=== PATIENT | male | born 1975 | race Caucasian/White ===

== ENCOUNTER 2023-05-10 12:49 | Emergency (ER) | payer BC, SELFPAY ==
[2023-05-10] VITALS (11 sets, daily range): BP systolic 91–155; BP diastolic 54–92; PULSE 98–108; RESP 13–27; TEMP 36.8–38.1; O2SAT 90–99; BMI 33.9
--- NOTE | 2023-05-10 13:08 | ECG_ITS ---
[facility] Test Date: 2023-05-10 Pat Name: NABIL BLANCO Department: Room: - Gender: Male Contracting Officer: : 1975 Requested By: PING KEYS Order Number: [id number] Reading MD: ELIF TORRES Measurements Intervals [place] Rate: 102 P: 65 [place]: 166 QRS: 63 QRSD: 88 T: 48 QT: 320 QTc: 379 Interpretive Statements 1120 Sinus tachycardia 9140 abnormal rhythm ECG No previous ECG available for comparison Electronically Signed On 05-11-2023 7:21:05 EST by ELIF TORRES
--- NOTE | 2023-05-10 13:08 | ED.SOB1 ---
HPI - SOB/Dyspnea General Chief Complaint: Shortness of Breath/Dyspnea Stated Complaint: SHORTNESS OF BREATH Time Seen by Provider: 05/10/23 13:05 Source: patient Mode of arrival: walk-in Limitations: no limitations History of Present Illness HPI Narrative: 48-year-old male presents for shortness of breath. He states he is having an asthma flareup. His inhaler ran out and he did not have any albuterol at home. He has been this way for the past day. No productive cough or known fever. Related Data Previous Rx's Medication Instructions Recorded albuterol sulfate 2.5 mg/3 mL 2.5 mg (3 mL) inhalation Q6H PRN 05/10/23 (0.083 %) solution for nebulization shortness of breath or wheezing #90 mL albuterol sulfate 90 mcg/actuation 2 inh inhalation Q4H PRN shortness 05/10/23 aerosol inhaler of breath or wheezing #8.5 grams Allergies Allergy/AdvReac Type Severity Reaction Status Date / Time No Known Drug Allergies Allergy Verified 05/10/23 13:03 Review of Systems ROS Narrative A ten point review of systems is negative except as noted above. PFSH PFSH Social History Smoking status: Never smoker Exam Narrative Exam Narrative: Nurses note and vital signs reviewed and patient is not hypoxic. General: The patient appears well and in no apparent distress. Patient is resting comfortably on cart. Skin: Warm, dry, no pallor noted. There is no rash noted. Head: Normocephalic, atraumatic Eye: Normal conjunctiva, no drainage Ears, Nose, Mouth, and Throat: oral mucosa is moist. Nares patent. Respiratory: Patient is in no distress, a few rhonchi present Back: non-tender GI: Soft and nontender Musculoskeletal: The patient has no evidence of calf tenderness, no pitting edema, symmetrical pulses noted bilaterally Neurological: A&O, normal speech Psychiatric: Cooperative Constitutional Vital Signs, click to edit/add: Last Vital Signs Temp 98.3 F 05/10/23 15:03 Pulse 105 H 05/10/23 14:40 Resp 18 05/10/23 14:40 BP 107/60 05/10/23 15:00 Pulse Ox 93 L 05/10/23 14:40 O2 Del Method Room Air 05/10/23 13:04 Course Vital Signs Vital signs: Vital Signs Temperature 100.6 F H 05/10/23 13:04 Pulse Rate 107 H 05/10/23 13:04 Respiratory Rate 20 05/10/23 13:04 Blood Pressure 155/92 H 05/10/23 13:04 Pulse Oximetry 95 05/10/23 13:04 Oxygen Delivery Method Room Air 05/10/23 13:04 Temperature 98.3 F 05/10/23 15:03 Pulse Rate 105 H 05/10/23 14:40 Respiratory Rate 18 05/10/23 14:40 Blood Pressure 107/60 05/10/23 15:00 Pulse Oximetry 93 L 05/10/23 14:40 Oxygen Delivery Method Room Air 05/10/23 13:04 MDM - SOB/Dyspnea MDM Narrative Medical decision making narrative: The patient is positive for influenza. His temperature has come down with Tylenol and he feels much better after aerosol treatment. He is able to be discharged home with prescriptions for albuterol inhaler and albuterol solution for his nebulizer. Treatment diagnosis and follow-up were discussed with the patient Differential Diagnosis Differential diagnosis: Likely congestive heart failure, community acquired pneumonia, asthma with exacerbation and other (COVID, influenza) Lab Data Attestation: I reviewed the patient's lab results. Labs: Lab Results 05/10/23 Range/Units 13:24 Influenza Type A Ag Positive A Influenza Type B Ag Negative SARS-CoV-2 Ag (CV2AG) Negative (NEGATIVE) Imaging Data Chest x-ray: Radiologist's impression: ITS Impressions Chest X-Ray 05/10/23 13:16 IMPRESSION: Chest radiograph is within normal limits. Electronically authenticated by: AVE LOERA Date: 05/10/2023 14:26 Discharge Plan Discharge Chief Complaint: Shortness of Breath/Dyspnea Clinical Impression: Influenza Patient Disposition: Home, Self-Care Time of Disposition Decision: 15:34 Condition: Good Mode of Transportation: Private Vehicle Prescriptions / Home Meds: New albuterol sulfate 90 mcg/actuation HFA aerosol inhaler 2 inh inhalation Q4H PRN (Reason: shortness of breath or wheezing) Qty: 8.5 0RF albuterol sulfate 2.5 mg /3 mL (0.083 %) solution for nebulization 2.5 mg inhalation Q6H PRN (Reason: shortness of breath or wheezing) Qty: 90 0RF Instructions: Influenza (ED) Stand Alone Forms: Portal Instructions Referrals: Kat William MD [Primary Care Provider] - 1 week
--- NOTE | 2023-05-10 13:16 | XR_ITS ---
The [address] [address] Patient Name: NABIL BLANCO MRN: [id number] date: 1975 Sex: M Assigned Patient Location: ER Current Patient Location: ED.MAIN Accession/Order Number: [id number] Exam Date: 05/10/2023 13:20 Report Date: 05/10/2023 14:26 At the request of: RADHA MOJICA Procedure: XR chest 1V PROCEDURE: XR chest 1V DATE: 05/10/2023 1:20 PM EST COMPARISONS: None. CLINICAL INDICATION: 48 years Male Fever, cough FINDINGS: The cardiomediastinal silhouette and pulmonary vasculature are within normal limits. The lungs are clear. There is no evidence of pleural effusion or pneumothorax. XR/XR chest 1V IMPRESSION: Chest radiograph is within normal limits. Electronically authenticated by: AVE LOERA Date: 05/10/2023 14:26
[2023-05-10] MEDS: ALBUTEROL SULFATE 2.5 MG/3 ML VIAL NEB IH (13:29)
[2023-05-10] MEDS: ACETAMINOPHEN 325 MG TABLET 650 MG PO (13:35)
[2023-05-10 13:47] LABS: Influenza Virus A Antigen Positive; Influenza Virus B Antigen Negative; Internal Control Within Normal Limits; SARS-CoV-2 Ag NEGATIVE (NEGATIVE)
== END 2023-05-10 15:39 | disposition home or self-care (01) ==
PROVIDERS: Emergency Provider Emergency Medicine; PCP Family Medicine
DX: J10.1 Influenza due to other identified influenza virus with other respiratory manifestations (principal)
CPT/HCPCS: 71045; 87804; 87811; 93005; 94640; 99285

== ENCOUNTER 2025-01-03 15:05 | Outpatient (OUT) | payer BC, SELFPAY ==
[2025-01-03 15:24] LABS: Hematocrit 41.1 % (42.0-54.0); Hemoglobin 13.5 g/dL (14.0-18.0); Immature Granulocytes Abs Auto 0.01 10^3/uL (0.00-0.03); Immature Granulocytes Pct Auto 0.2 % (0.0-0.5); Lymphocytes Absolute Auto 1.8 10^3/uL (1.2-3.8); Mean Corpuscular HGB Conc 32.8 g/dL (29.9-35.2); Mean Corpuscular Hemoglobin 28.7 pg (25.9-34.0); Mean Corpuscular Volume 87.4 fL (80.0-94.0); Platelet Count 269 10^3/uL (150-450); Red Blood Count 4.70 10^6/uL (4.70-6.10); White Blood Count 6.1 10^3/uL (4.0-11.0)
[2025-01-03 15:49] LABS: Alanine Aminotransferase 33 U/L (16-63); Albumin Globulin Ratio 1.2; Albumin Level 3.7 g/dL (3.4-5.0); Alkaline Phosphatase 65 U/L (46-116); Anion Gap 10.4; Aspartate Amino Transferase 19 U/L (15-37); Blood Urea Nitrogen 18.0 mg/dL (7.0-18.0); Calcium 8.5 mg/dL (8.5-10.1); Carbon Dioxide 30.6 mmol/L (21.0-32.0); Chloride 107 mmol/L (98-107); Cholesterol 193 mg/dL (<=200); Estimated GFR (African America >60 (>=60 mL/min/1.73m^2); Estimated GFR (Non-African Ame >60 (>=60 mL/min/1.73m^2); Globulin 3.1 g/dL; Glucose 98 mg/dL (74-106); HDL Cholesterol 46 mg/dL (40-60); Potassium 4.0 mmol/L (3.5-5.1); Sodium 144 mmol/L (136-145); TSH W/ REFLEX FT4 1.664 uIU/mL (0.358-3.740); Total Protein 6.8 g/dL (6.4-8.2); Triglycerides 45 mg/dL (<=150); VLDL CHOLESTEROL 9.0 mg/dL
== END 2025-01-03 15:06 | disposition home or self-care (01) ==
LOC: LAB 15:07
PROVIDERS: PCP Family Medicine; Visit Provider Family Medicine
DX: Z00.00 Encounter for general adult medical examination without abnormal findings (principal); R63.5 Abnormal weight gain; Z12.5 Encounter for screening for malignant neoplasm of prostate
CPT/HCPCS: 36415; 80053; 80061; 84403; 84443; 85025; G0103